=== PATIENT | female | born 1970 | race Caucasian/White ===

== ENCOUNTER 2018-04-19 07:45 | Inpatient (IN) | payer OTHER ==
[~2018-04-19] VITALS: Ht 170.2 cm; Wt 90.7 kg
== END 2018-04-28 15:53 | disposition home or self-care (01) | DRG 743 ==
LOC: O/R 04-26 05:40 → OB/GYN 04-26 05:40 → SURH 04-26 07:00 → OB/GYN 04-26 10:53
PROVIDERS: Obstetrics & Gynecology
PROC: 0UT70ZZ Resection of Bilateral Fallopian Tubes, Open Approach (ICD-10-PCS; 2018-04-26)
PROC: 0UT20ZZ Resection of Bilateral Ovaries, Open Approach (ICD-10-PCS; 2018-04-26)
PROC: 0UT90ZZ Resection of Uterus, Open Approach (ICD-10-PCS; principal; 2018-04-26 07:00)
DX: D25.1 Intramural leiomyoma of uterus (principal)

== ENCOUNTER 2020-05-02 08:14 | Day surgery (SDC) | payer OTHER ==
[2020-05-02] MEDS ORDERED: PERCOCET 5-3251 EACH PO (12:40)
[2020-05-02] MEDS ORDERED: COLACE100 MG PO (12:40)
== END 2020-05-02 19:05 | disposition home or self-care (01) ==
LOC: CIR.AMB 08:14
PROVIDERS: ATTEND Surgery
DX: K60.1 Chronic anal fissure (principal); K62.4 Stenosis of anus and rectum; Z20.828 Contact with and (suspected) exposure to other viral communicable diseases